=== PATIENT | male | born 1945 | race Caucasian/White ===

== ENCOUNTER 2020-08-03 06:41 | Outpatient (NON) | payer MEDICARE, OTHER, SELFPAY ==
[2020-08-04 01:03] LABS: SARS-CoV-2 RNA PCR Positive
== END 2020-08-03 06:42 ==
LOC: ANHCOVIDDT 06:41
PROVIDERS: Visit Provider Internal Medicine
DX: U07.1 COVID-19 (principal)
CPT/HCPCS: 87635; C9803; U0003